=== PATIENT | female | born 1995 | race Caucasian/White ===

== ENCOUNTER 2019-03-05 20:42 | Emergency (ER) | payer SELFPAY ==
[~2019-03-05] VITALS: Ht 162.6 cm; Wt 95.7 kg
[2019-03-05] MEDS ORDERED: INVEGA SUS39 MG/0.25 IM (21:00)
[2019-03-05] MEDS ORDERED: CLONIDINE HCL0.1 MG PO (21:00)
[2019-03-05] MEDS ORDERED: DEPAKOTE125 MG PO (21:00)
[2019-03-05] MEDS ORDERED: LITHATE5 MG PO (21:01)
[2019-03-05] MEDS ORDERED: HYDROXYZINE HCL25 MG PO (21:02)
== END 2019-03-05 22:11 | disposition home or self-care (01) ==
LOC: ED 20:42
DX: F20.9 Schizophrenia, unspecified (principal); Z00.8 Encounter for other general examination; Z88.8 Allergy status to other drugs, medicaments and biological substances
CPT/HCPCS: 36415; 80053; 80176; 81001; 84443; 84703; 85025; 99282; G0480